=== PATIENT | male | born 1990 | race Caucasian/White ===

== ENCOUNTER 2022-02-26 19:47 | Emergency (ER) | payer OTHER ==
[2022-02-26 20:07] VITALS: BP 151/76
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
--- NOTE | 2022-02-26 22:34 | XRAY Report ---
PROCEDURE: Shoulder 3 View RT INDICATIONS: pain; felt a pop with pulling TECHNIQUE: 3 views of the shoulder were acquired. COMPARISON: None. FINDINGS: Bones: No fractures or dislocations. No suspicious bony lesions. Visualized ribs appear intact. Soft tissues: No suspicious soft tissue calcifications. IMPRESSION: 1. No fracture or dislocation. Reviewed by: Emerson Mosley MD on 02/26/2022 10:32 PM [facility] Approved by: Emerson Mosley MD on 02/26/2022 10:32 PM [facility] Station ID: [id number]
== END 2022-02-26 21:25 | disposition home or self-care (01) ==
LOC: ED 19:47
DX: M12.811 Other specific arthropathies, not elsewhere classified, right shoulder (principal)
CPT/HCPCS: 99283

== ENCOUNTER 2022-03-18 22:45 | Emergency (ER) | payer OTHER ==
[2022-03-18 23:03] VITALS: BP 142/59
[2022-03-18 23:41] LABS: BASOPHILS # (AUTO) 0.1 10^3/uL (0.0-0.1); BASOPHILS % (AUTO) 0.6 %; EOSINOPHILS # (AUTO) 0.2 10^3/uL (0.0-0.7); EOSINOPHILS % (AUTO) 2.4 %; HGB - HEMOGLOBIN 13.9 g/dL (14.0-18.0); LYMPHOCYTES # (AUTO) 1.8 10^3/uL (1.5-3.5); LYMPHOCYTES % (AUTO) 20.9 %; MEAN CORPUSCULAR HEMOGLOBIN 29.3 pg (27.0-31.0); MEAN CORPUSCULAR HGB CONC 32.3 g/dL (32.0-36.0); MEAN CORPUSCULAR VOLUME 90.7 fL (80.0-94.0); MEAN PLATELET VOLUME 9.7 fL (7.4-11.4); MONOCYTES # (AUTO) 0.8 10^3/uL (0.0-1.0); MONOCYTES % (AUTO) 9.3 %; NEUTROPHILS # (AUTO) 5.6 10^3/uL (1.5-6.6); NEUTROPHILS % (AUTO) 66.6 %; PLT - PLATELET COUNT 222 10^3/uL (130-450); RED BLOOD COUNT 4.74 10^6/uL (4.70-6.10); RED CELL DISTRIBUTION WIDTH 12.4 % (12.0-15.0); WHITE BLOOD COUNT 8.4 x10^3/uL (4.8-10.8)
[2022-03-18 23:49] LABS: BILIRUBIN,URINE NEGATIVE (NEGATIVE); GLUCOSE, URINE (UA) NEGATIVE (NEGATIVE); KETONES,URINE (UA) NEGATIVE (NEGATIVE); LEUKOCYTE ESTERASE, URINE NEGATIVE (NEGATIVE); NITRITE,URINE NEGATIVE (NEGATIVE); OCCULT BLOOD,URINE NEGATIVE (NEGATIVE); PROTEIN,URINE NEGATIVE (NEGATIVE); UROBILINOGEN,URINE 0.2 (NORMAL) E.U./dL (NORMAL)
[2022-03-18 23:50] LABS: ALBUMIN 4.1 g/dL (3.2-5.5); ALBUMIN/GLOBULIN RATIO 1.4 (1.0-2.2); BILIRUBIN,TOTAL 1.8 mg/dL (0.2-1.0); CALCIUM 8.8 mg/dL (8.5-10.3); CREATININE 1.2 mg/dL (0.6-1.2); POTASSIUM 4.4 mmol/L (3.5-5.0)
[2022-03-18 23:54] LABS: CLARITY,URINE CLEAR (CLEAR)
[2022-03-19] MEDS ORDERED: DICYCLOMINE 10 MG CAPSULE PO STA (00:17)
--- NOTE | 2022-03-19 00:20 | ED Physician Documentation ---
PD HPI ABD PAIN - Stated complaint Stated Complaint: SALT POISONING? - Chief complaint Chief Complaint: Abd Pain - History obtained from History obtained from: Patient, Friend (roommate) - Additional information Additional information: 31-year-old man, previously healthy, presented with Diffuse cramping abdominal pain that is nonradiating after eating 3 very salty steaks this evening. Patient states he normally eats only 1 meal a day and he some salty steak that his roommate made. She then became concerned that he had salt poisoning after he began acting "dazed" And complained of abdominal cramping. Denies nausea, vomiting, other symptoms. Review of Systems GI: reports: Abdominal Pain. denies: Nausea, Vomiting : denies: Dysuria PD PAST MEDICAL HISTORY - Past Medical History Cardiovascular: None Respiratory: None Neuro: None Endocrine/Autoimmune: None GI: None : None HEENT: None Psych: None Musculoskeletal: None Derm: None - Past Surgical History Past Surgical History: Yes General: Other HEENT: Other - Present Medications Home Medications: Ambulatory Orders Medication Instructions Recorded Confirmed No Known Home Medications 02/26/22 03/18/22 - Allergies Allergies/Adverse Reactions: Allergies Allergy/AdvReac Type Severity Reaction Status Date / Time No Known Drug Allergies Allergy Verified 03/18/22 22:55 - Social History Does the pt smoke?: No Smoking Status: Never smoker Does the pt drink ETOH?: No Does the pt have substance abuse?: No - Immunizations Immunizations are current?: Yes - POLST Patient has POLST: No PD ED PE NORMAL - Vitals Vital signs reviewed: Yes - General General: Alert and oriented X 3, No acute distress, Well developed/nourished - HEENT HEENT: Atraumatic, PERRL, EOMI - Abdomen Abdomen: Non tender, Non distended, No organomegaly - Derm Derm: Normal color, Warm and dry - Neuro Neuro: Alert and oriented X 3, No motor deficit, No sensory deficit, Normal speech Eye Opening: Spontaneous Motor: Obeys Commands Verbal: Oriented GCS Score: 15 Results - Vitals Vitals: Vital Signs - 24 hr 03/18/22 22:56 Temperature 36.6 C Heart Rate 58 L Respiratory 18 Rate Blood Pressure 142/59 H O2 Saturation 97 Oxygen O2 Source Room air - Labs Labs: Laboratory Tests 01/03/23 01/03/23 01/03/23 23:32 23:32 23:39 WBC 8.4 RBC 4.74 Hgb 13.9 L Hct 43.0 MCV 90.7 MCH 29.3 MCHC 32.3 RDW 12.4 Plt Count 222 MPV 9.7 Neut # (Auto) 5.6 Lymph # (Auto) 1.8 [place] # (Auto) 0.8 Eos # (Auto) 0.2 Baso # (Auto) 0.1 Absolute Nucleated RBC 0.00 Nucleated RBC % 0.0 Sodium 136 Potassium 4.4 Chloride 102 Carbon Dioxide 26 Anion Gap 8.0 BUN 20 Creatinine 1.2 Estimated GFR (MDRD) 71 L Glucose 92 Calcium 8.8 Total Bilirubin 1.8 H AST 24 ALT 20 Alkaline Phosphatase 42 Total Protein 7.0 Albumin 4.1 Globulin 2.9 Albumin/Globulin Ratio 1.4 Lipase 32 Urine Color YELLOW Urine Clarity CLEAR Urine pH 7.0 Ur Specific [place] 1.015 Urine Protein NEGATIVE Urine Glucose (UA) NEGATIVE Urine Ketones NEGATIVE Urine Occult Blood NEGATIVE Urine Nitrite NEGATIVE Urine Bilirubin NEGATIVE Urine Urobilinogen 0.2 (NORMAL) Ur Leukocyte Esterase NEGATIVE Ur Microscopic Review NOT INDICATED Urine Culture Comments NOT INDICATED PD Medical Decision Making - ED course ED course: 31-year-old man presented with abdominal pain consistent with bloating after eating a large salty meal. Lab work including CBC and abdominal panel as well as urinalysis was performed that is benign. Mild elevated T bili discussed with the patient. He will follow-up with his primary care provider. Return precautions given. Departure - Departure Disposition: 01 Home, Self Care Clinical Impression: Abdominal pain Condition: Good Instructions: ED Screening Exam Medical Nonurgent Comments: You were seen in the emergency department for evaluation of abdominal pain after eating 3 steaks.Your lab work including CBC, abdominal panel, and urine testing was normal.Please follow-up with your primary care provider and return to the em ergency department if you have any new or worsening symptoms or other concerns.
== END 2022-03-19 00:31 | disposition home or self-care (01) ==
LOC: ED 22:45
DX: R10.84 Generalized abdominal pain (principal)
CPT/HCPCS: 36415; 80053; 81003; 83690; 85025; 99282; 99283; A9270; 81001; 87086

== ENCOUNTER 2022-09-03 20:35 | Emergency (ER) | payer OTHER ==
--- NOTE | 2022-09-03 21:01 | ED Physician Documentation ---
PD HPI HEADACHE - Stated complaint Stated Complaint: VALENZUELA - Chief complaint Chief Complaint: Neuro - History obtained from History obtained from: Patient, Family - History of Present Illness Timing - details: Gradual onset Pain level max: 9 Pain level now: 4 Location: Right Quality: Throbbing, Aching. No: Thunderclap Associated symptoms: No: Fever, Stiff neck, Nausea, Vomiting, Weakness, Numbness, Syncope, Seizure Improved by: Rest, Dark room, Quiet Worsened by: Light, Noise, Moving - Additional information Additional information: Patient is a 32-year-old male who presents to the emergency department with his father. He has had a constant headache for the past 4 days on the right side of his head, feels like it starts at the neck and radiates up towards the right eye. He states that his father has a history of brain aneurysms that were clipped about 12 years ago. [place] pressures in his eyes and told him he should come to the emergency department for evaluation of possible aneurysms. He states his intraocular pressures were normal. No vomiting. Worse with light and sound. Does not usually get headaches. Took Naprosyn without relief. He states that it is worse when he is exerting himself such as working out. No recent illnesses. No fevers. No chest pain, shortness of breath. No rhinorrhea or congestion. No thunderclap headache Review of Systems Constitutional: denies: Fever, Chills Ears: denies: Ear pain Nose: denies: Rhinorrhea / runny nose, Congestion Throat: denies: Sore throat Cardiac: denies: Chest pain / pressure, Palpitations Respiratory: denies: Dyspnea, Cough GI: denies: Abdominal Pain, Nausea, Vomiting : denies: Dysuria Skin: denies: Rash Musculoskeletal: denies: Neck pain, Back pain Neurologic: denies: Focal weakness, Numbness, Syncope, Seizure, Confused, Altered mental status PD PAST MEDICAL HISTORY - Past Medical History Past Medical History: No Cardiovascular: None Respiratory: None Neuro: None Endocrine/Autoimmune: None GI: None : None HEENT: None Psych: None Musculoskeletal: None Derm: None - Past Surgical History Past Surgical History: Yes General: Other HEENT: Other - Present Medications Home Medications: Ambulatory Orders Medication Instructions Recorded Confirmed No Known Home Medications 02/26/22 09/03/22 - Allergies Allergies/Adverse Reactions: Allergies Allergy/AdvReac Type Severity Reaction Status Date / Time No Known Drug Allergies Allergy Verified 09/03/22 20:38 - Social History Does the pt smoke?: No Smoking Status: Never smoker Does the pt drink ETOH?: No Does the pt have substance abuse?: No - Immunizations Immunizations are current?: Yes - POLST Patient has POLST: No PD ED PE NORMAL - Vitals Vital signs reviewed: Yes - General General: Alert and oriented X 3, No acute distress - HEENT HEENT: Atraumatic, PERRL, EOMI, Ears normal, Moist mucous membranes, Other (No temporal artery tenderness.) - Neck Neck: Supple, no meningeal sign, No bony TTP, No adenopathy, No JVD, No bruit - Cardiac Cardiac: RRR, No murmur, Strong equal pulses - Respiratory Respiratory: No respiratory distress, Clear bilaterally - Abdomen Abdomen: Soft, Non tender, Non distended - Back Back: No CVA TTP, No spinal TTP - Derm Derm: Warm and dry, No rash - Extremities Extremities: No edema, No calf tenderness / cord - Neuro Neuro: Alert and oriented X 3, 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 Normal gait) Eye Opening: Spontaneous Motor: Obeys Commands Verbal: Oriented GCS Score: 15 - Psych Psych: Normal mood, Normal affect Results - Vitals Vitals: Vital Signs - 24 hr 09/03/22 09/03/22 09/03/22 20:38 20:44 20:57 Temperature 36.5 C Heart Rate 72 Respiratory 16 18 16 Rate Blood Pressure 142/91 H O2 Saturation 99 09/03/22 22:25 Temperature Heart Rate 55 L Respiratory 17 Rate Blood Pressure 132/75 H O2 Saturation 99 Oxygen O2 Source Room air - Labs Labs: Laboratory Tests 09/03/22 09/03/22 21:00 21:00 WBC 10.5 RBC 5.02 Hgb 15.1 Hct 44.1 MCV 87.8 MCH 30.1 MCHC 34.2 RDW 12.3 Plt Count 239 MPV 9.7 Neut # (Auto) 8.9 H Lymph # (Auto) 0.8 L [place] # (Auto) 0.6 Eos # (Auto) 0.1 Baso # (Auto) 0.1 Absolute Nucleated RBC 0.00 Nucleated RBC % 0.0 Sodium 136 Potassium 3.9 Chloride 102 Carbon Dioxide 26 Anion Gap 8.0 BUN 16 Creatinine 1.0 Estimated GFR (MDRD) 87 L Glucose 89 Calcium 9.1 PD Medical Decision Making - ED course Complexity details: reviewed results, re-evaluated patient, considered differential, d/w patient, d/w family ED course: No significant findings on physical examination here. Laboratory testing does not show any significant abnormalities. CT angiogram of the head was ordered. This result is pending at the time of signout to the oncoming emergency department physician. Assuming that the CT angiogram is negative, the patient can be treated for his headache and follow-up with his doctor. This document was made in part using voice recognition software. While efforts are made to proofread this document, sound alike and grammatical errors may occur. Departure - Departure Clinical Impression: Headache Qualifiers: Headache type: unspecified Headache chronicity pattern: acute headache Intractability: not intractable Qualified Code(s): R51.9 - Headache, unspecified Condition: Stable
[2022-09-03] MEDS ORDERED: iohexoL-300 100 ML VIAL ONE (21:05)
[2022-09-03 21:13] LABS: BASOPHILS # (AUTO) 0.1 10^3/uL (0.0-0.1); BASOPHILS % (AUTO) 0.5 %; EOSINOPHILS # (AUTO) 0.1 10^3/uL (0.0-0.7); HCT - HEMATOCRIT 44.1 % (42.0-52.0); HGB - HEMOGLOBIN 15.1 g/dL (14.0-18.0); LYMPHOCYTES # (AUTO) 0.8 10^3/uL (1.5-3.5); LYMPHOCYTES % (AUTO) 7.4 %; MEAN CORPUSCULAR HEMOGLOBIN 30.1 pg (27.0-31.0); MEAN CORPUSCULAR HGB CONC 34.2 g/dL (32.0-36.0); MEAN CORPUSCULAR VOLUME 87.8 fL (80.0-94.0); MEAN PLATELET VOLUME 9.7 fL (7.4-11.4); MONOCYTES # (AUTO) 0.6 10^3/uL (0.0-1.0); MONOCYTES % (AUTO) 5.5 %; NEUTROPHILS # (AUTO) 8.9 10^3/uL (1.5-6.6); NEUTROPHILS % (AUTO) 85.2 %; PLT - PLATELET COUNT 239 10^3/uL (130-450); RED BLOOD COUNT 5.02 10^6/uL (4.70-6.10); RED CELL DISTRIBUTION WIDTH 12.3 % (12.0-15.0); WHITE BLOOD COUNT 10.5 x10^3/uL (4.8-10.8)
[2022-09-03 21:19] LABS: CALCIUM 9.1 mg/dL (8.5-10.3); POTASSIUM 3.9 mmol/L (3.5-5.0)
--- NOTE | 2022-09-04 00:04 | CT Report ---
PROCEDURE: ANGIO HEAD W/WO INDICATIONS: R sided headache CONTRAST: Omni 300 100ml TECHNIQUE: Precontrast 4.5 mm thick angled axial sections acquired from the foramen magnum to the vertex. Afte r the administration of intravenous contrast, 1 mm thick sections acquired through the [place] of [place] is. Postcontrast 4.5 mm thick sections then re-acquired from the foramen magnum to the vertex. 3-di mensional etzqghh-pjenfxbfu-oooyxyltij (MIP) and/or volume rendering reformats were acquired of the c entral intracranial vasculature. For radiation dose reduction, the following was used: automated ex posure control, adjustment of mA and/or kV according to patient size. COMPARISON: None. FINDINGS: Image quality: Excellent. BRAIN: CSF spaces: Basal cisterns are patent. No extra-axial fluid collections. Ventricles are normal in size and shape. Brain: No intracranial hemorrhage, mass, or mass effect. Haider-white matter interface appears preser fernando. No abnormal intracranial enhancement. Skull and face: Calvarium and facial bones appear intact, without suspicious lesions. Orbits appear normal. Sinuses: Sinuses and mastoids are clear. HEAD CT ANGIOGRAPHY: Anterior circulation: Intracranial internal carotid arteries are normal in size and appear patent bi laterally. There is mild atherosclerotic calcification along the cavernous segments of the internal carotid arteries. The paired anterior cerebral arteries appear patent bilaterally. The anterior com municating artery also appears patent. The middle cerebral arteries appear patent bilaterally. No hi gh-grade stenosis, occlusion, or filling defects. No cerebral aneurysms identified. Posterior circulation: Visualized portions of the vertebral arteries demonstrate normal caliber, and join to form a patent basilar artery. The posterior cerebral arteries appears patent bilaterally. No high-grade stenosis, occlusion, or filling defects. No cerebral aneurysms identified. IMPRESSION: 1. No acute intracranial abnormality. 2. No high-grade stenosis or occlusion of the central intracranial arteries. Reviewed by: Emerson Mosley MD on 09/04/2022 12:02 AM PDT Approved by: Emerson Mosley MD on 09/04/2022 12:02 AM PDT Station ID: [id number]
--- NOTE | 2022-09-04 01:08 | ED Physician Documentation ---
ED Addendum - Addendum Addendum: 09/04/22 01:07 Patient endorsed to me by Dr. Day awaiting CTA head interpretation by outside radiologist. Wet read was negative and the official interpretation is negative for acute pathology as well. Discussed with patient and return precautions given. Plan to follow-up with primary care provider. Impression Headache Condition stable Disposition Home
[2022-09-04 01:15] VITALS: BP 126/73
[2022-09-04] MEDS ORDERED: iohexoL-300 100 ML VIAL IVP ONE (01:59)
== END 2022-09-04 01:15 | disposition home or self-care (01) ==
LOC: ED 20:35
DX: R51.9 Headache, unspecified (principal)
CPT/HCPCS: 36415; 70496; 80048; 85025; 99283; 99284; Q9967

== ENCOUNTER 2022-11-06 10:47 | Emergency (ER) | payer OTHER ==
--- NOTE | 2022-11-06 11:27 | XRAY Report ---
PROCEDURE: Foot 3 View LT INDICATIONS: injury/pain TECHNIQUE: 3 views of the foot were acquired. COMPARISON: None. FINDINGS: Bones: No fractures or dislocations. No suspicious bony lesions. Soft tissues: No suspicious soft tissue calcifications or masses. IMPRESSION: No acute bony abnormality. If there is persistent clinical concern for a radiographically occult fracture, recommend immobilizat ion and repeat imaging in 10 to 14 days. Reviewed by: Jacinto Moncada MD on 11/06/2022 11:26 AM PDT Approved by: Jacinto Moncada MD on 11/06/2022 11:26 AM PDT Station ID: [id number]
--- NOTE | 2022-11-06 12:28 | ED Physician Documentation ---
PD HPI LOWER EXT INJURY - Stated complaint Stated Complaint: LT FOOT INJ - Chief complaint Chief Complaint: Ext Problem - History obtained from History obtained from: Patient, Family - Additional information Additional information: The patient comes to the emergency department chief complaint of left second and third toes pain, swelling and contusion After attempting to jump from a trampoline onto the wall and hitting his foot several days ago. 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 Patient denies any other injuries or complaints. He can move his toes without difficulty. No swelling. He states the tips are bruised but it hurts to the base of his second and third toes. PD PAST MEDICAL HISTORY - Past Medical History Past Medical History: Yes Cardiovascular: None Respiratory: None Neuro: None Endocrine/Autoimmune: None GI: None : None HEENT: None Psych: None Musculoskeletal: None Derm: None - Past Surgical History Past Surgical History: Yes General: Other HEENT: Other - Present Medications Home Medications: Ambulatory Orders Medication Instructions Recorded Confirmed No Known Home Medications 02/26/22 09/03/22 - Allergies Allergies/Adverse Reactions: Allergies Allergy/AdvReac Type Severity Reaction Status Date / Time No Known Drug Allergies Allergy Verified 09/03/22 20:38 - Social History Does the pt smoke?: No Smoking Status: Never smoker Does the pt drink ETOH?: No Does the pt have substance abuse?: No - Immunizations Immunizations are current?: Yes - POLST Patient has POLST: No PD ED PE NORMAL - Vitals Vital signs reviewed: Yes - General General: Alert and oriented X 3, No acute distress, Well developed/nourished - HEENT HEENT: Atraumatic, PERRL, EOMI, Moist mucous membranes - Neck Neck: Supple, no meningeal sign - Cardiac Cardiac: Strong equal pulses - Respiratory Respiratory: No respiratory distress - Derm Derm: Warm and dry, Other (Contusion at the distal tips of the second and third left toes without edema. No skin breakage.) - Extremities Extremities: No deformity, Normal ROM s pain - Neuro Neuro: Alert and oriented X 3 - Psych Psych: Normal mood, Normal affect Results - Vitals Vitals: Vital Signs - 24 hr 11/06/22 11/06/22 10:53 12:32 Temperature 36.7 C 36.7 C Heart Rate 78 75 Respiratory 18 17 Rate Blood Pressure 159/96 H 155/88 H O2 Saturation 97 98 Oxygen O2 Source Room air - Rads (name of study) Left foot x-ray series Relevant Findings:: Final report received, See rad report (Negative) PD Medical Decision Making - ED course Complexity details: reviewed results, re-evaluated patient, considered differential, d/w patient ED course: I discussed with the patient that his x-rays were negative. He has contused his toes and this will get better on its own in time. We have discussed the usual indications for return. Departure - Departure Disposition: 01 Home, Self Care Clinical Impression: Contusion of toe of left foot Qualifiers: Encounter type: initial encounter Toe: lesser toe Damage to nail status: without damage Qualified Code(s): S90.122A - Contusion of left lesser toe(s) without damage to nail, initial encounter Condition: Stable Instructions: ED Contusion Lower Ext Comments: Your x-rays look good. There is no evidence of any broken bones in your toes or the rest your foot. The bruises will go away on their own, as well the pain. You may bear weight as tolerated. You may also use ice and ibuprofen as needed. Forms: Activity restrictions Discharge Date/Time: 11/06/22 12:32
[2022-11-06 12:37] VITALS: BP 155/88; O2SAT 98
== END 2022-11-06 12:32 | disposition home or self-care (01) ==
LOC: ED 10:47
DX: S90.122A Contusion of left lesser toe(s) without damage to nail, initial encounter (principal); W22.8XXA Striking against or struck by other objects, initial encounter
CPT/HCPCS: 99283

== ENCOUNTER 2023-02-08 09:24 | Emergency (ER) | payer OTHER ==
[2023-02-08 09:35] VITALS: BP 133/90; O2SAT 97
--- NOTE | 2023-02-08 10:17 | ED Physician Documentation ---
PD HPI LOWER EXT INJURY - Stated complaint Stated Complaint: LT FOOT PX - Chief complaint Chief Complaint: Trauma Ext - History obtained from History obtained from: Patient - Additional information Additional information: Patient is a 32-year-old male presenting for evaluation of left foot pain since yesterday. Patient states he was playing paint ball and stepped wrong in a hole. Pain is gradually been worsening. It does hurt to put weight on the foot. He has been using anti-inflammatories. Denies head injury. Review of Systems Musculoskeletal: reports: Extremity pain Neurologic: denies: Head injury PD PAST MEDICAL HISTORY - Past Medical History Past Medical History: No Cardiovascular: None Respiratory: None Neuro: None Endocrine/Autoimmune: None GI: None : None HEENT: None Psych: None Musculoskeletal: None Derm: None - Past Surgical History Past Surgical History: Yes General: Other HEENT: Other - Present Medications Home Medications: Ambulatory Orders Medication Instructions Recorded Confirmed HYDROcod/ACETAM 5/325 [[place] 5/325] 1 tablet PO Q6H PRN #14 tablet 02/08/23 traZODone [Desyrel] 50 mg PO QPM 02/08/23 02/08/23 - Allergies Allergies/Adverse Reactions: Allergies Allergy/AdvReac Type Severity Reaction Status Date / Time No Known Drug Allergies Allergy Verified 02/08/23 09:32 - Social History Does the pt smoke?: No Smoking Status: Never smoker Does the pt drink ETOH?: No Does the pt have substance abuse?: No - Immunizations Immunizations are current?: Yes - POLST Patient has POLST: No PD ED PE NORMAL - General General: Alert and oriented X 3, No acute distress, Well developed/nourished - HEENT HEENT: Atraumatic - Cardiac Cardiac: Strong equal pulses - Respiratory Respiratory: No respiratory distress - Derm Derm: Warm and dry - Extremities Extremities: Other (Tenderness of the dorsum of the left foot, pain to digits with range of motion, no tenderness to lateral or medial malleoli, no ankle swelling, no proximal tenderness to the left extremity) Results - Vitals Vitals: Vital Signs - 24 hr 02/08/23 09:29 Temperature 35.7 C L Heart Rate 66 Respiratory 16 Rate Blood Pressure 133/90 H O2 Saturation 97 Oxygen O2 Source Room air PD Medical Decision Making - ED course Complexity details: reviewed results, re-evaluated patient, d/w patient ED course: Patient is a 32-year-old male presenting for evaluation of left foot pain after injury yesterday. Neurovascularly intact. No open wounds. X-ray was obtained which I reviewed. There is a faint lucency in the area he has pain. Could represent small fracture. Therefore will place into a postop shoe. Patient declines crutches. He has some at home. 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 Advised on concerning symptoms to return for. Departure - Departure Disposition: Home, Self Care Clinical Impression: Injury of left foot Condition: Stable Instructions: ED Sprain [facility] Prescriptions: HYDROcod/ACETAM 5/325 [[place] 5/325] 1 tablet PO Q6H PRN #14 tablet PRN Reason: Pain Comments: There is a small finding on 1 view of your x-rays that could represent a small chip or fracture. It is unclear whether this is a new injury or from a prior injury. Therefore given the location of your pain here I will treated as a possible new injury and we have placed you into a hard soled shoe and given you crutches. I would recommend follow-up in the next week as you may need repeat x-rays. I have sent a small amount of narcotic pain medication to [facility] in [place]. Please do not drive or operate machinery while on this medication. Continue with ice, anti-inflammatories and elevation. I am prescribing a short course of narcotic pain medication for you. These are potentially dangerous and addictive medications that should be used carefully. These medications may constipate you. Take an jsih-kdi-taivsmn stool softener (docusate) twice daily with plenty of water while taking these medications. If you go 24 hours without a bowel movement, take [id number] miralax, per package instructions. Do not drink or drive while taking these medications. If you received narcotic or sedating medications while in the emergency department, do not drive for 24 hours. Store this medication in a safe, secure place and out of reach of children. It is a violation of federal law to give or sell this medication to another person or to use in a manner other than prescribed. The ED will not refill narcotic prescriptions, including prescriptions lost or stolen. To dispose of unwanted medications: 1. [facility] at [address] in [place] has a medication drop box. They accept prescription medications (in pill form) Thursday through Thursday 9:00 a.m. to 5:00 p.m. 2. The [facility] accepts prescription medications (in pill form only) for disposal year round. Call for more information. 3. Contact the [facility] for the next [facility] sponsored prescription drug collection event. , [phone], or [phone]; Note that many narcotic pain relievers also contain Tylenol/acetaminophen. Please ensure that your total dose of acetaminophen from all sources does not exceed 3 g (3000 mg) per day. XRAY IMPRESSION: Tiny density seen on oblique view between the base of the second and third metatarsals may represent an age-indeterminate prior injury. No displaced fracture or dislocation identified otherwise. If there is high concern for occult injury, consider repeat radiography or cross- sectional imaging. Forms: PCP List, Activity restrictions Discharge Date/Time: 02/08/23 11:02
--- NOTE | 2023-02-08 10:18 | XRAY Report ---
PROCEDURE: Foot 3 View LT INDICATIONS: injury/pain TECHNIQUE: 3 views of the foot were acquired. COMPARISON: 11/06/2022 FINDINGS: Bones: Minimal hallux valgus alignment. No displaced fracture. No dislocation. There is a tiny densi ty seen on oblique view between the base of the second and third metatarsals. Soft tissues: No suspicious calcifications. IMPRESSION: Tiny density seen on oblique view between the base of the second and third metatarsals may represent an age-indeterminate prior injury. No displaced fracture or dislocation identified otherwise. If ther e is high concern for occult injury, consider repeat radiography or cross-sectional imaging. Reviewed by: Gary Garcia MD on 02/08/2023 10:17 AM [facility] Approved by: Gary Garcia MD on 02/08/2023 10:17 AM [facility] Station ID: [id number]
== END 2023-02-08 11:02 | disposition home or self-care (01) ==
LOC: ED 09:24
DX: S99.922A Unspecified injury of left foot, initial encounter (principal); X58.XXXA Exposure to other specified factors, initial encounter; Y93.89 Activity, other specified
CPT/HCPCS: 99283

== ENCOUNTER 2023-03-02 07:57 | Outpatient (CLI) | payer OTHER ==
--- NOTE | 2023-03-03 10:35 | MRI Report ---
PROCEDURE: FOOT WO - LT INDICATIONS: FOOT PAIN TECHNIQUE: Noncontrast sagittal T1 spin echo and T2 fast spin echo with fat saturation, long-axis T1 spin echo a nd T2 fast spin echo with fat saturation, short-axis proton density fast spin echo and T2 fast spin e cho with fat saturation through the forefoot. COMPARISON: None. FINDINGS: Image quality: Excellent. Bones and joints: There is marrow edema involving second and third metatarsal base is, adjacent dista l portion of middle and lateral cuneiforms as well as distal portion of the cuboid. Questionable line ar hypointense signal involving second metatarsal base is seen series 6 image 8 concerning for subtle nondisplaced fracture or stress fracture. No other fracture line is identified. No other area of abn ormal marrow signal is seen. Soft tissues: There is soft tissue edema over dorsal aspect of midfoot at the level of the metatarsa l shafts. The visualized plantar foot muscles demonstrate normal signal and bulk. Visualized flexor and extensor tendons appear intact, without tenosynovitis. Principal Lisfranc ligament is thickened with surrounding soft tissue edema. No soft tissue ganglion cysts or bursal fluid collections. Sagit ling images demonstrate no evidence for plantar plate tears. IMPRESSION: 1. Finding is concerning for subtle nondisplaced fracture or stress fracture involving second metatar dona base. Contusion versus stress related changes involving third metatarsal base, distal portion of middle and lateral cuneiforms as well as distal portion of cuboid bone. 2. Soft tissue swelling and edema over dorsal aspect of midfoot at the level of metatarsal shaft and TMT joints. 3. Suggestion of moderate grade partial-thickness tear involving Lisfranc ligament. 4. Extensor and flexor tendons are intact. Reviewed by: Andre Rivers MD on 03/03/2023 10:34 AM PST Approved by: Andre Rivers MD on 03/03/2023 10:34 AM PST Station ID: [id number]
== END 2023-03-02 07:58 | disposition home or self-care (01) ==
LOC: DI 07:57
PROVIDERS: ATTEND Podiatrist
DX: M79.672 Pain in left foot (principal); R93.6 Abnormal findings on diagnostic imaging of limbs; R93.89 Abnormal findings on diagnostic imaging of other specified body structures

== ENCOUNTER 2023-05-05 07:47 | Outpatient (CLI) | payer OTHER ==
--- NOTE | 2023-05-06 12:04 | MRI Report ---
PROCEDURE: Foot LT WO INDICATIONS: DISPLACED FX TECHNIQUE: Noncontrast sagittal T1 spin echo and T2 fast spin echo with fat saturation, long-axis T1 spin echo a nd T2 fast spin echo with fat saturation, short-axis proton density fast spin echo and T2 fast spin e cho with fat saturation through the forefoot. COMPARISON: Left foot MRI 03/02/2023. FINDINGS: Image quality: Excellent. Bones and joints: Mild osseous edema is seen in the 2nd proximal phalangeal shaft with surrounding co rtical thickening and periosteal new bone formation, suspicious for mild stress reaction. Previously seen osseous edema at the metatarsophalangeal joints has resolved. Mild hallux valgus. Mild osseous e sharri is seen in the medial lateral hallux sesamoid, likely related to mild degenerative changes. 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 No intraosseous lesions. Soft tissues: Mild soft tissue edema is seen adjacent to the proximal 2nd metatarsal. Intermediate s ignal seen in the region of the Lisfranc ligament, although the bulk of the fibers appear to be intac t. The visualized plantar foot muscles demonstrate normal signal and bulk. Visualized flexor and ext ensor tendons appear intact, without tenosynovitis. No soft tissue ganglion cysts or bursal fluid co llections. Sagittal images demonstrate no evidence for plantar plate tears. IMPRESSION: 1.Mild osseous edema at the proximal 2nd metatarsal shaft with surrounding periosteal reaction is kaycee picious for mild stress reaction. No focal fracture line is seen. 2.Suspected prior low-grade sprain of the Lisfranc ligament. No widening of the 1st intermetatarsal d istance. 3.Mild hallux valgus. Mild edema within the medial and lateral hallux sesamoids is likely related to mild metatarsal-sesamoid osteoarthrosis. Reviewed by: Freedom Gracia MD on 05/06/2023 12:02 PM PST Approved by: Freedom Gracia MD on 05/06/2023 12:02 PM PST Station ID: [id number]
== END 2023-05-05 07:48 | disposition home or self-care (01) ==
LOC: DI 07:47
PROVIDERS: ATTEND Podiatrist
DX: S92.332D Displaced fracture of third metatarsal bone, left foot, subsequent encounter for fracture with routine healing (principal); R93.6 Abnormal findings on diagnostic imaging of limbs; M20.12 Hallux valgus (acquired), left foot

== ENCOUNTER 2023-10-13 08:18 | Outpatient (CLI) | payer OTHER ==
--- NOTE | 2023-10-13 15:19 | MRI Report ---
PROCEDURE: Foot LT WO INDICATIONS: SUBLUXATION OF TARSOMETATARSAL JOINT OF LEFT FOOT TECHNIQUE: Noncontrast sagittal T1 spin echo and T2 fast spin echo with fat saturation, long-axis T1 spin echo a nd T2 fast spin echo with fat saturation, short-axis proton density fast spin echo and T2 fast spin e cho with fat saturation through the forefoot. COMPARISON: Left foot x-rays 11/06/2022 and 02/08/2023, MRI of left foot without contrast 03/02/2023 and 05/05/2023 FINDINGS: Image quality: Excellent. Bone: There has been interval increase in mild, patchy intramedullary edema involving the second and third metatarsal shafts and bases (6/8-12) as well as the anterior aspect of the lateral cuneiform (6 /10). There is cortical thickening of the second metatarsal shaft (5/9). New marrow edema is present at the dorsal aspect of the first metatarsal base (4/11). Joint: There is mild hallux valgus. The other joint spaces are preserved without any significant effu esperanza. Muscle: Overall muscle bulk is preserved. Tendon: The visualized flexor and extensor tendons are within normal limits. Ligament: There is thickening and mild indistinctness of the dorsal band of the Lisfranc ligament (8/ 40). The interosseous and plantar components are preserved. There is minimal lateral offset of the se cond metatarsal base with respect to the medial border of the intermediate cuneiform, although this i s unchanged when compared to 05/05/2023 (5/10). Plantar plate: The plantar plates are intact. IMPRESSION: 1.Chronic low-grade sprain of the Lisfranc interval, with minimal malalignment of the second metatars al base and intermediate cuneiform. 2.Stress injury of the second metatarsal shaft. No distinct fracture line. 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 Reviewed by: Zeyad Jackson MD on 10/13/2023 3:17 PM PDT Approved by: Zeyad Jackson MD on 10/13/2023 3:17 PM PDT Station ID: [id number]
== END 2023-10-13 08:19 | disposition home or self-care (01) ==
LOC: DI 08:18
PROVIDERS: ATTEND Podiatrist
DX: S93.322D Subluxation of tarsometatarsal joint of left foot, subsequent encounter (principal); S93.692A Other sprain of left foot, initial encounter; S99.822A Other specified injuries of left foot, initial encounter